=== PATIENT | male | born 1995 | race Caucasian/White ===

== ENCOUNTER 2016-12-09 14:12 | Emergency (ER) | payer OTHER ==
[~2016-12-09] VITALS: Ht 172.7 cm; Wt 75.0 kg
[2016-12-09 14:15] VITALS: BP 150/88; PULSE 83; RESP 16; O2SAT 100
--- NOTE | 2016-12-09 15:10 | ED.REPORT ---
HPI-Neurologic Deficit Date of Service Dec 09, 2016 ED Provider: Dr. Favio Collado M.D. A healthy 21 year old male presents to the ED accompanied by his with left- sided numbness/tingling spreading from his leg upward onset two hours ago. Associated symptoms include left-sided clumsiness w/out weakness, transient slurred speech, right-sided throbbing head pressure, and visual aura with flashy lights in the peripheral vision. The patient also reports experiencing a right-sided headache onset yesterday. He has a history of migraine headaches. His symptoms began to resolve from his feet upwards, 45 minutes after onset. The patient now reports mild peripheral vision change and feeling "fuzzy," but his symptoms have otherwise resolved. He denies headache, abdominal pain, chest pain, back pain, or other symptoms. Nursing Notes Stated Complaint: LEFT SIDE BODY NUMBNESS Chief Complaint: Neuro Symptoms/ Deficits Nursing Notes Reviewed: Yes Allergies: Coded Allergies: Sulfa (Sulfonamide Antibiotics) (Verified Allergy, Intermediate, 12/09/16) General Time Seen by Provider: 15:10 Chief Complaint Numbness arm... (Left), Numbness leg... (Left) Hx Obtained From: Patient, Spouse Arrived By: Walk-in Sudden in Onset?: Yes Onset Occurred: 1 - 4 hours ago Symptom Duration: 31 - 45 minutes Severity: Current: No pain currently Severity: Maximum: No pain Immunizations: Unknown Recent Healthcare: No recent doctor visit Similar Sx Previous: No Past Medical History Past Medical History None reported Past Surgical History None reported Smoking History Unknown if Ever Smoker Social History Other Social History: Good social support, Ambulatory Status Independent Review of Systems Review of Systems Note: + Feeling "fuzzy" Constitutional: Denies: Fever Respiratory: Denies: Non-productive cough, Shortness of breath Cardiovascular: Denies: Chest pain GI: Denies: Abdominal pain, Diarrhea, Vomiting Musculoskeletal: Denies: Back pain Neurologic: Reports: Headache (Resolved), Numbness (Left-sided, resolved), Slurred speech (Resolved), Vision change, Weakness (Left-sided, resolved) Complete sys rev & neg: except as marked. Physical Exam Initial Vital Signs Vital Signs (First) Date Time Temp Pulse Resp B/P Pulse Ox O2 Delivery O2 Flow Rate FiO2 12/09/16 14:15 36.7 83 16 150/88 100 Room Air Initial VS: Reviewed ENT: Conjunctiva normal, No scleral icterus Skin: Warm, Dry Psychiatric: Mood/affect normal, Behavior normal General/Constitutional: Awake, Alert, No acute distress Head / Eyes: Atraumatic, Normocephalic Respiratory / Chest: Breath sounds NL, Breath sounds = bilat, No respiratory distress Cardiovascular: Heart rate NL, Regular rhythm, Heart sounds NL, No gallop, No murmurs, No rubs, Peripheral circulation NL (Good radial pulses) Neurologic: Oriented X3, Speech NL (Fluent, linear, full sentences), No motor deficits (5/5 strength in all four extremities), No sensory deficits (Sensation intact all four extremities), CN II - XII intact, Gait NL Speech: Negative: Slurred Focal Weakness: Negative: Pronator drift L, Pronator drift R No facial droop Negative Romberg sign Neck: Atraumatic, Supple, Full range of motion Abdomen: Soft, Non-tender, No distention Interpretation & Diagnostics Lab Results Interpretation Result Diagram: 12/09/16 1600 12/09/16 1600 Test 12/09/16 15:47 12/09/16 16:00 Urine Color Straw (YELLOW) Urine Appearance Clear (CLEAR,HAZY) Urine pH 6.0 (5.0-8.0) Urine Specific [place] <1.005 (1.003-1.035) Urine Protein Negativemg/dL (NEG,TRACE) Urine Glucose (UA) Negativemg/dL (NEGATIVE) Urine Ketones Negativemg/dL (NEGATIVE) Urine Occult Blood Negative (NEGATIVE) Urine Nitrite Negative (NEGATIVE) Urine Bilirubin Negative (NEGATIVE) Urine Urobilinogen Normalmg/dL (NORMAL) Urine Leukocyte Esterase Negative (NEGATIVE) Urine RBC 0-2/hpf (0-2) Urine WBC 0-5/hpf (0-5) Urine Epithelial Cells Occasional/hpf (NONE-MOD) Urine Crystals None seen (NONE SEEN) Urine Bacteria None/hpf (NONE-FEW) Urine Hyaline Casts None/lpf (NONE) Urine Granular Casts None seen (NONE SEEN) Urine Waxy Casts None seen (NONE SEEN) Urine Red Blood Cell Casts None seen (NONE SEEN) Urine White Blood Cell Casts None seen (NONE SEEN) Urine Mucus None seen (None Seen) Urine Trichomonas None seen (NONE SEEN) Urine Yeast None (NONE SEEN) Urinalysis Comment None Urine Culture Reflexed Not indicated White Blood Count 4.6th/mm3 (3.8-10.1) Red Blood Count 5.24mil/mm3 (4.40-5.80) Hemoglobin 15.5g/dL (13.8-17.2) Hematocrit 44.6% (41.0-50.0) Mean Corpuscular Volume 85.1fL (81-100) Mean Corpuscular Hemoglobin 29.6pg (27.0-35.0) Mean Corpuscular Hemoglobin Concent 34.8% (32.0-37.0) Red Cell Distribution Width 12.5% (12.3-15.4) Platelet Count 173bil/L (150-400) Neutrophils (%) (Auto) 50.5% (40-74) Lymphocytes (%) (Auto) 38.4% (14-46) Monocytes (%) (Auto) 10.0% (4-12) Eosinophils (%) (Auto) 0.9% (0-5) Basophils (%) (Auto) 0.2% (0-3) Sodium Level 144mEq/L (134-144) Potassium Level 4.1mEq/L (3.5-5.2) Chloride Level 103mEq/L (97-108) Carbon Dioxide Level 26mmol/L (18-29) Blood Urea Nitrogen 12mg/dL (6-20) Creatinine 1.08mg/dL (0.76-1.27) Estimat Glomerular Filtration Rate 90mL/min (>59) Glucose Level 102mg/dL (60-99) Calcium Level 9.6mg/dL (8.5-10.1) Total Bilirubin 0.9mg/dL (0.0-1.2) Aspartate Amino Transf (AST/SGOT) 15U/L (0-50) Alanine Aminotransferase (ALT/SGPT) 17U/L (0-44) Alkaline Phosphatase 62U/L (25-150) Total Protein 8.1g/dL (6.4-8.4) Albumin 5.2g/dL (3.4-5.0) Hold Rosenthal Top Tube Received (Received) ECG Interpretation ECG Interpretation: Sinus rhythm rate 84 Normal axis Incomplete right bundle branch block Mild J-point elevation No significant conduction abnormalities or ischemic changes Time: 15:52 Interpreted by: ED physician CT Head Interpretation IMPRESSION: 1. No acute intracranial process. Dictated by: Asha Smith M.D. on 12/09/2016 at 15:54 Study: Head CT no contrast Interpretation / Wet Read by: Interpret - Radiologist Re-Eval/Medical Decision Med Decision/Clinical Course In summary, the patient is a very healthy 21-year-old male with past medical history notable for migraine headaches who presents with headache with associated transient left body numbness/tingling and visual aura. Here in the emergency room is symptoms symptoms completely resolved. CT scan of the head was obtained from triage that demonstrated no acute intracranial process, hemorrhage or mass lesion. EKG was obtained and demonstrated sinus rhythm at 84 bpm, normal axis, incomplete right bundle branch block, mild J-point elevation, no significant conduction abnormalities or ischemic changes. Our primary and secondary assessment reveals an awake, alert patient in no acute distress. Hemodynamically stable and afebrile. Exam reveals normal neurologic exam. Laboratory studies were obtained from triage including CBC and metabolic panel both of which were unremarkable. Suspect the patient's headache represents a an atypical migraine headache as it was associated with right sided throbbing headache, visual aura and transient vague sensory neurologic changes and an otherwise healthy young male without any risk factors for stroke/TIA and no history of head trauma. Considered other causes of headache to include: Subdural hemorrhage, subarachnoid hemorrhage, SEWER CONNECTOR tumor, meningitis, encephalitis, venous sinus thrombosis, dissection, temporal arteritis, intracranial hypertension (psuedotumor cerebri), sinusitis or cervicalgia, although these are less likely based on the history, exam, lab, and radiographic findings as noted above. Based on this, I feel that further imaging/workup would be low yield and is not warranted at this time. Discussed the risks and benefits of this with the patient who is in agreement. Also discussed with the patient at length that if symptoms change, worsen, or persist, should return to the ER for reevaluation. They understand and agree with the plan. Given the patient's workup, feel they are safe for discharge. Re-Evaluation/Progress : Time of Eval: 16:48 )( Re-Eval Neurologic Exam: Alert, Pt is back to baseline Patient Status: Condition improved Re-Evaluation/Progress Note: Discussed with patient CT and lab results, diagnosis, and plan for discharge. Follow-up and return to the ER instructions given. Patient agrees with plan for care and all questions were addressed. Counseled Regarding: Diagnosis, Lab results, Need for follow-up, When/why to return to ED Discharge & Departure Impression: Primary Impression: Atypical migraine Additional Impression: Pins and needles sensation Disposition: Home Discharge Condition All VS Reviewed: Yes Condition: Improved Patient Instructions: Migraine Headache (ED) Additional Instructions: Thank you for seeking care at the emergency room. It is difficult for us to make definitive diagnoses in the ED but we believe that you experienced an atypical migraine headache. Our primary goal today in the ED was to evaluate you for any life-threatening conditions. Your evaluation was reassuring. You should follow-up with your primary doctor in the next week. You should return to the ED immediately if you develop recurrent symptoms, weakness on one side and her body, sudden/severe headache, neck stiffness, fevers, vomiting, cough, shortness of breath, chest pain, lightheadedness, or any other concerning signs or symptoms. Thank you for letting us partake in your care today. Referrals: [facility] Scribe Attestation Portions of this note were transcribed by Tracy Chou. I, Dr. Collado, personally performed the history, physical exam, and medical decision-making; I reviewed and confirmed the accuracy of the information in the transcribed note. Signed by: Bandar Canada, 12/09/2016, 16:55 copies to: [facility] Favio Collado MD Dec 09, 2016 15:10 TRACY CHOU Dec 09, 2016 15:41
--- NOTE | 2016-12-09 15:56 | DRSVH ---
PROCEDURE: CT BRAIN WITHOUT CONTRAST ([id number]) INDICATIONS: episode of lt sided weakness, slurred speech TECHNIQUE: Noncontrast 4.5 mm thick angled axial sections acquired from the foramen magnum to the vertex, with c oronal reformats. COMPARISON: None. FINDINGS: Image quality: Excellent. CSF spaces: Basal cisterns are patent. No extra-axial fluid collections. Ventricles are normal in size and shape. Brain: No midline shift. No intracranial masses or hemorrhage. Santana-white matter interface is norm al. Skull and face: Calvarium and visualized facial bones are intact, without suspicious lesions. Sinuses: Visualized sinuses and mastoids are clear. IMPRESSION: 1. No acute intracranial process. Dictated by: Asha Smith M.D. on 12/09/2016 at 15:54 Approved by: Asha Smith M.D. on 12/09/2016 at 15:54
[2016-12-09 16:15] LABS: APPEARANCE,URINE CLEAR (CLEAR,HAZY); COLOR,URINE STRAW (YELLOW); OCCULT BLOOD,URINE NEGATIVE (NEGATIVE); UROBILINOGEN,URINE NORMAL (NORMAL)
[2016-12-09 16:29] LABS: BASOPHILS % (AUTO) 0.2 % (0-3); EOSINOPHILS % (AUTO) 0.9 % (0-5); Mean Corpuscular Hemoglobin 29.6 pg (27.0-35.0); Mean Corpuscular Volume 85.1 fL (81-100); NEUTROPHILS % (AUTO) 50.5 % (40-74); Platelet Count 173 bil/L (150-400)
[2016-12-09 16:57] VITALS: BP 105/65; PULSE 59; RESP 14; O2SAT 99
== END 2016-12-09 16:58 | disposition home or self-care (01) ==
LOC: EDBD 14:12 → SED 14:12
DX: G43.809 Other migraine, not intractable, without status migrainosus (principal); R20.8 Other disturbances of skin sensation; Z88.2 Allergy status to sulfonamides